=== PATIENT | male | born 1930 | race Caucasian/White ===

== ENCOUNTER 2017-12-12 04:00 | Emergency (ER) | payer OTHER, MEDICARE ==
--- NOTE | 2017-12-12 04:38 | ED MVC/FALL/TRAUMA COMPLAINT ---
History of Present Illness General Chief Complaint: Fall Stated Complaint: FALL R HIP PAIN Source: patient, old records, EMS, [facility] Exam Limitations: dementia Vital Signs & Intake/Output Vital Signs & Intake/Output Vital Signs Date Time Temp Pulse Resp B/P B/P Pulse O2 O2 Flow FiO2 Mean Ox Delivery Rate 12/12 0404 97.0 98 18 178/79 95 Room Air Allergies Coded Allergies: NO KNOWN ALLERGIES (07/13/13) Triage Note: PT BIBA FROM [facility] S/P [facility]. PT STATES HE STOOD UP OUT OF HIS RECLINER AND LEANED FORWARD TO GRAB HIS SHOES AND FELL ON HIS FACE AND R HIP. REPORTS PAIN 5/10 TO R HIP, SHORTENING OF R LEG NOTED. AOX2 AT THIS TIME, HAS HX DEMENTIA. NOT ON BLOOD THINNERS Triage Nurses Notes Reviewed? yes Onset: Just prior to arrival Duration: minute(s):, constant, continues in ED Timing: recent history Severity: moderate Injuries/Fall Location: lower extremity (right hip) Method of Injury: direct blow, fall Loss of Consciousness: no loss of consciousness Modifying Factors: Worsens With: movement, palpation. HPI: Prior to admission patient lost his balance and fell forward striking his face head and right hip. He complains of right hip pain moderate in severity nonradiating worse with movement palpation. He denies other injury fever chills nausea vomiting diarrhea abdominal pain chest pain shortness breath headache dysuria rash bleeding loss of consciousness. Past History Travel History Traveled to [place] past 21 day No Medical History Any Pertinent Medical History? see below for history Neurological: dementia EENT: NONE Cardiovascular: CAD, hypertension, hyperlipidemia, PVD, DVT Respiratory: NONE Gastrointestinal: GERD Hepatic: NONE Renal: NONE Musculoskeletal: falls, osteoarthritis Psychiatric: anxiety, depression Endocrine: hypothyroidism Blood Disorders: NONE Cancer(s): NONE REHABILITATION SERVICES COUNSELOR/Reproductive: NONE History of MRSA: No History of VRE: No History of CDIFF: Yes Pneumonia Vaccine: 04/17/08 Influenza Vaccine: 02/15/13 Surgical History Surgical History: hip replacement (bilateral) Psychosocial History Who do you live with Spouse Services at Home None What is your primary language Nauruan Tobacco Use: Quit >30 days ago ETOH Use: denies use Family History Family History, If Any: not significannt Hx Contributory? No Review of Systems Review of Systems Constitutional: Reports: no symptoms. Eyes: Reports: no symptoms. Ears, Nose, Throat, Mouth: Reports: no symptoms. Respiratory: Reports: no symptoms. Cardiovascular: Reports: no symptoms. Gastrointestinal/Abdominal: Reports: no symptoms. Genitourinary: Reports: no symptoms. Musculoskeletal: Reports: see HPI, joint pain. Skin: Reports: no symptoms. Neurological/Psychological: Reports: no symptoms. All Other Systems: Reviewed and Negative Physical Exam Physical Exam General Appearance: well developed/nourished, alert, awake, mild distress Head: atraumatic, normal appearance Eyes: Bilateral: normal appearance, PERRL, EOMI, normal inspection. Ears, Nose, Throat, Mouth: hearing grossly normal, moist mucous membrane Neck: normal inspection, supple, full range of motion, normal alignment Respiratory: normal breath sounds, chest non-tender, no respiratory distress, quiet respiration, lungs clear Cardiovascular: regular rate/rhythm, normal peripheral pulses, norml femoral pulses equa Peripheral Pulses: 4+ carotid (R), 4+ carotid (L) Gastrointestinal: normal bowel sounds, soft, non-tender, no organomegaly Back: normal inspection, normal range of motion, no vertebral tenderness Extremities: bony-point tenderness, pain with movement, straight leg raised Neurologic/Psych: no motor/sensory deficits, awake, alert, normal mood/affect, 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 No CVA/TIA Diagnosis No Sepsis Present: No Sepsis Focused Exam Completed? No Progress Differential Diagnosis: ext injury, pelvis injury Plan of Care: Orders Procedure Date/time Status XRY-HIP 2-3 VIEWS, RIGHT 12/[address] HEAD WO IV CONTRAST 12/12 416 Active Current Medications Sig/Brent Start time Last Medication Dose Stop Time Status Admin Ondansetron HCl 4 MG ONCE ONE 12/12 0500 UNVr 12/12 (Zofran) 12/12 0501 0454 Diagnostic Imaging: Viewed by Me: Radiology Read, CT Scan. Discussed w/RAD: Radiology Read, CT Scan. Radiology Impression: Intact hardware traversing right femoral head and neck., No evidence for acute intracranial injury. Age-appropriate appearance of the brain. Departure Departure Time of Disposition: 535 Disposition: HOME OR SELF CARE Condition: Stable Clinical Impression Primary Impression: Contusion of hip, right Secondary Impressions: Fall at fdc, Head injury, acute Referrals: Pattie MD,Zion (PCP/Family) Departure Forms: Customer Survey General Discharge Information
--- NOTE | 2017-12-12 05:24 | RADIOLOGY REPORT ---
EXAMINATION: XR HIP, RIGHT CLINICAL INFORMATION: Right hip pain. COMPARISON: None TECHNIQUE: AP and crosstable lateral views of the right hip. FINDINGS: 3 lag screws traversing the right femoral head and neck are intact without failure or migration. There are no acute fractures. The right femoral head is seated within a well-formed acetabulum. IMPRESSION: Intact hardware traversing right femoral head and neck.
--- NOTE | 2017-12-12 05:26 | CT SCAN REPORT ---
EXAMINATION: CT HEAD WITHOUT CONTRAST CLINICAL INFORMATION: Trauma to head. Fall. COMPARISON: None. TECHNIQUE: Contiguous helical images of the brain were obtained without IV contrast. Multiplanar reconstructions were performed. DLP: 618 mGy-cm. FINDINGS: There are no pathologic extra-axial fluid collections. The lateral, third, fourth ventricles are prominent, though age-appropriate and concordant with the appearance of the sulci. There is no evidence for acute intraparenchymal hemorrhage or infarct. And there is periventricular low-attenuation indicative of small vessel disease. There is neither mass nor mass effect. There is no shift of midline structures. The paranasal sinuses and mastoid air cells are clear. There are no osseous lesions. IMPRESSION: No evidence for acute intracranial injury. Age-appropriate appearance of the brain.
[2017-12-12] MEDS ORDERED: VITAMIN D3400 UNI1 PO (05:37)
[2017-12-12 06:41] VITALS: BP 153/81
== END 2017-12-12 06:53 ==
LOC: ERH 04:00
DX: S70.01XA Contusion of right hip, initial encounter (principal); S09.90XA Unspecified injury of head, initial encounter; W19.XXXA Unspecified fall, initial encounter; Y93.89 Activity, other specified; Y92.129 Unspecified place in nursing home as the place of occurrence of the external cause
CPT/HCPCS: 73502-RT; J3101